=== PATIENT | male | born 1940 | race Caucasian/White ===

== ENCOUNTER → 2016-09-02 | Outpatient (CLI) | payer MEDICARE ==
[~2016-09-02] MED LIST: ASPI-515 PO; FINA5TAB4 PO; FOLI1TAB39 PO; IPRA3AMP INH; METO25TA35 PO; RANI150C PO; SEVE800T8 PO; SIMV40TA3 PO; TAMS0.4C2 PO
== END | disposition home or self-care (01) ==
LOC: CVU 13:26
PROVIDERS: ATTEND Internal Medicine Cardiovascular Disease
DX: I65.21 Occlusion and stenosis of right carotid artery (principal); Z87.891 Personal history of nicotine dependence; N18.6 End stage renal disease
CPT/HCPCS: 93880

== ENCOUNTER → 2017-09-24 | Outpatient (CLI) | payer MEDICARE ==
[2017-09-24 15:39] LABS: BASOPHILS % (AUTO) 0 % (0-1); EOSINOPHILS # (AUTO) 0.01 x10^3/uL (0-0.4); EOSINOPHILS % (AUTO) 0 % (1-7); LYMPHOCYTES # (AUTO) 0.38 x10^3/uL (1-3.4); LYMPHOCYTES % (AUTO) 5 % (22-44); MD NO; MEAN CORPUSCULAR HEMOGLOBIN 31.4 pg (27.5-34.5); MEAN CORPUSCULAR HGB CONC 32.2 g/dL (33.2-36.2); MEAN CORPUSCULAR VOLUME 97.6 fL (81-97); MONOCYTES # (AUTO) 0.47 x10^3/uL (0.2-0.8); MONOCYTES % (AUTO) 6 % (2-9); NEUTROPHILS # (AUTO) 6.77 x10^3/uL (1.8-6.8); NEUTROPHILS % (AUTO) 89 % (42-75); PLATELET COUNT 240 x10^3/uL (130-400); RED BLOOD COUNT 3.58 x10^6/uL (4.38-5.82); RED CELL DISTRIBUTION WIDTH 18.8 % (9.4-14.8)
== END | disposition home or self-care (01) ==
LOC: CFH 13:47
PROVIDERS: ATTEND Nurse Practitioner Family
DX: I10 Essential (primary) hypertension (principal); I25.10 Atherosclerotic heart disease of native coronary artery without angina pectoris; I48.0 Paroxysmal atrial fibrillation; D63.1 Anemia in chronic kidney disease; E78.2 Mixed hyperlipidemia
CPT/HCPCS: 36415; 85025

== ENCOUNTER 2019-07-21 11:17 | Day surgery (SDC) | payer MEDICARE ==
[~2019-07-21] VITALS: Ht 172.7 cm; Wt 55.9 kg
[~2019-07-21 11:17] MED LIST changes: -IPRA3AMP INH; +IPRA3AMP30 INH; +SIMV40TA20 PO; -SIMV40TA3 PO
[2019-07-21] MEDS ORDERED: SODIUM CHLORIDE 0.9% 1,000 ML IV SCH ×2 (11:35→14:15)
[2019-07-21 11:52] VITALS: BP 112/48
[2019-07-21] MEDS ORDERED: MIDO10TA PO (12:06)
[2019-07-21] MEDS ORDERED: CHOL10003 PO (12:06)
[2019-07-21] MEDS ORDERED: SODI3VIA INH (12:06)
[2019-07-21] MEDS ORDERED: ROSU20TA2 PO (12:06)
[2019-07-21] MEDS ORDERED: FLUT1AER INH (12:06)
[2019-07-21] MEDS ORDERED: ALBU8.5H8 INH (12:06)
[2019-07-21] MEDS ORDERED: PRED5TAB PO (12:06)
[2019-07-21] MEDS ORDERED: FAMO20TA7 PO (12:06)
[2019-07-21 12:23] LABS: BASOPHILS # (AUTO) 0.04 x10^3/uL (0-0.1); BASOPHILS % (AUTO) 1 % (0-1); EOSINOPHILS % (AUTO) 3 % (1-7); LYMPHOCYTES # (AUTO) 0.43 x10^3/uL (1-3.4); LYMPHOCYTES % (AUTO) 7 % (22-44); MD NO; MEAN CORPUSCULAR HEMOGLOBIN 29.4 pg (27.5-34.5); MEAN CORPUSCULAR HGB CONC 31.9 g/dL (33.2-36.2); MEAN CORPUSCULAR VOLUME 92.3 fL (81-97); MEAN PLATELET VOLUME 6.6 fL (7.4-10.4); MONOCYTES # (AUTO) 0.68 x10^3/uL (0.2-0.8); MONOCYTES % (AUTO) 12 % (2-9); NEUTROPHILS # (AUTO) 4.55 x10^3/uL (1.8-6.8); NEUTROPHILS % (AUTO) 77 % (42-75); PLATELET COUNT 209 x10^3/uL (130-400); RED BLOOD COUNT 3.66 x10^6/uL (4.38-5.82); RED CELL DISTRIBUTION WIDTH 20.7 % (9.4-14.8)
[2019-07-21 12:35] LABS: ANION GAP 7 mmol/L (5-15); CHLORIDE 102 mmol/L (98-107); CREATININE 2.94 mg/dL (0.7-1.3)
[2019-07-21] MEDS ORDERED: LIDOCAINE-MPF 1%, 5ML ONE (13:21)
[2019-07-21] MEDS ORDERED: FENTANYL PF 100 MCG/2ML ONE (13:21)
[2019-07-21] MEDS ORDERED: MIDAZOLAM 1 MG/ML, 5ML ONE (13:21)
[2019-07-21] MEDS ORDERED: BIVALIRUDIN 250 MG ONE (13:21)
[2019-07-21] MEDS ORDERED: VERAPAMIL 2.5 MG/ML, 2ML ONE (13:21)
[2019-07-21] MEDS ORDERED: LIDOCAINE 2%, 20ML ONE (13:52)
== END 2019-07-21 16:21 | disposition home or self-care (01) ==
LOC: CACL 11:17
PROVIDERS: ATTEND Internal Medicine Cardiovascular Disease
DX: I35.0 Nonrheumatic aortic (valve) stenosis (principal); I10 Essential (primary) hypertension; Z88.1 Allergy status to other antibiotic agents
CPT/HCPCS: 36415; 80048; 85025; 93454; C1769; C1894; J2250; J3010; Q9967; 99156; J0583

== ENCOUNTER 2019-09-06 14:55 | Outpatient (CLI) | payer MEDICARE ==
[~2019-09-06 14:55] MED LIST changes: +ALBU8.5H8 INH; +CHOL10003 PO; +FAMO20TA7 PO; +FLUT1AER INH; +MIDO10TA PO; +PRED5TAB PO; +ROSU20TA2 PO; +SODI3VIA INH
== END 2019-09-06 23:59 | disposition home or self-care (01) ==
LOC: CFH 14:55
PROVIDERS: ATTEND Internal Medicine Cardiovascular Disease
DX: I08.8 Other rheumatic multiple valve diseases (principal); I25.10 Atherosclerotic heart disease of native coronary artery without angina pectoris
CPT/HCPCS: 93306